=== PATIENT | female | born 1990 | race American Indian/Alaskan Native ===

== ENCOUNTER 2016-12-03 20:08 | Emergency (ER) | payer SELFPAY ==
[2016-12-03 20:29] VITALS: BP 128/80
[2016-12-03 21:19] LABS: Anion Gap 16 mmol/L; Blood Urea Nitrogen 6 mg/dL (7-17); Calcium 8.4 mg/dL (8.4-10.2); Carbon Dioxide 25 mmol/L (22-30); Chloride 102.5 mmol/L (98-107); Glucose 113 mg/dL (65-100); Potassium 3.7 mmol/L (3.6-5.0); Sodium 140 mmol/L (137-145)
[2016-12-03 21:22] LABS: Basophils % (Auto) 0.3 % (0.0-1.8); Eosinophils % (Auto) 1.9 % (0.0-4.3); Hematocrit 33.3 % (30.3-42.9); Hemoglobin 10.6 gm/dl (10.1-14.3); Mean Corpuscular HGB Conc 32 % (30-34); Mean Corpuscular Volume 82 fl (79-97); Platelet Count 200 K/mm3 (140-440); Red Blood Count 4.08 M/mm3 (3.65-5.03); Red Cell Distribution Width 14.5 % (13.2-15.2); White Blood Count 6.5 K/mm3 (4.5-11.0)
[2016-12-03 21:26] LABS: Mean Corpuscular Hemoglobin 26 pg (28-32)
--- NOTE | 2016-12-03 22:51 | XRay Report ---
FINAL REPORT EXAM: XR CHEST ROUTINE 2V HISTORY: shortness of breath TECHNIQUE: PA and lateral chest radiographs PRIORS: None. FINDINGS: No mediastinal shift. Cardiac silhouette is not enlarged. No pneumothorax, effusion, or focal pulmonary opacity. No acute skeletal finding. IMPRESSION: No focal pulmonary opacity.
--- NOTE | 2016-12-03 23:38 | Emergency Department Report ---
ED General Adult HPI - General Chief complaint: Upper Respiratory Infection Stated complaint: BACK/CHEST PAIN Time Seen by Provider: 12/03/16 23:15 Source: patient Mode of arrival: Ambulatory Limitations: No Limitations - History of Present Illness Initial comments: Patient comes into the ER today with complaints of left sided back pain for the past 2 days. Patient denies any obvious injury. Patient states that the pain is worse with movement, breathing, lifting. Patient also states that the pain seems to radiate around to her left side and describes it as a tight pulling sensation. Patient denies any cough, fever, hemoptysis, abdominal pain. Patient does note that she works at [employer] and does a lot of heavy lifting. -: days(s) (2) - Related Data Previous Rx's Medication Instructions Recorded Last Taken Type Cyclobenzaprine [Flexeril] 10 mg PO BID PRN #15 tablet 12/03/16 Unknown Rx Naproxen [Naprosyn TAB] 500 mg PO BID #20 tablet 12/03/16 Unknown Rx traMADol [Ultram 50 MG tab] 50 mg PO Q4HR PRN #20 tablet 12/03/16 Unknown Rx Allergies Allergy/AdvReac Type Severity Reaction Status Date / Time No Known Allergies Allergy Unverified 12/03/16 20:23 ED Review of Systems ROS: Stated complaint: BACK/CHEST PAIN Other details as noted in HPI Constitutional: denies: chills, fever Eyes: denies: eye pain, eye discharge, vision change ENT: denies: ear pain, throat pain Respiratory: denies: cough, shortness of breath, wheezing Cardiovascular: denies: chest pain, palpitations Endocrine: no symptoms reported Gastrointestinal: denies: abdominal pain, nausea, diarrhea Genitourinary: denies: urgency, dysuria, discharge Musculoskeletal: myalgia. denies: back pain, joint swelling, arthralgia Skin: denies: rash, lesions Neurological: denies: headache, weakness, paresthesias Psychiatric: denies: anxiety, depression Hematological/Lymphatic: denies: easy bleeding, easy bruising ED Past Medical Hx - Past Medical History Previous Medical History?: No - Surgical History Past Surgical History?: No - Social History Smoking Status: Never Smoker Substance Use Type: None - Medications Home Medications: Home Medications Medication Instructions Recorded Confirmed Last Taken Type Cyclobenzaprine [Flexeril] 10 mg PO BID PRN #15 tablet 12/03/16 Unknown Rx Naproxen [Naprosyn TAB] 500 mg PO BID #20 tablet 12/03/16 Unknown Rx traMADol [Ultram 50 MG tab] 50 mg PO Q4HR PRN #20 tablet 12/03/16 Unknown Rx ED Physical Exam - General Limitations: No Limitations General appearance: alert, in no apparent distress - Head Head exam: Present: atraumatic, normocephalic - Eye Eye exam: Present: normal appearance - ENT ENT exam: Present: normal exam, normal orophraynx, mucous membranes moist, TM's normal bilaterally, normal external ear exam - Neck Neck exam: Present: normal inspection, full ROM. Absent: tenderness, lymphadenopathy - Respiratory Respiratory exam: Present: normal lung sounds bilaterally. Absent: respiratory distress, decreased breath sounds - Cardiovascular Cardiovascular Exam: Present: regular rate, normal rhythm, normal heart sounds. Absent: systolic murmur, diastolic murmur, rubs, gallop - GI/Abdominal GI/Abdominal exam: Present: soft, normal bowel sounds. Absent: distended, tenderness, guarding, rebound - Extremities Exam Extremities exam: Present: normal inspection, full ROM, tenderness (left parascapular tenderness), normal capillary refill. Absent: pedal edema, joint swelling, calf tenderness - Back Exam Back exam: Present: normal inspection, full ROM, tenderness (left rhomboid and parascapular muscle tenderness), muscle spasm (left rhomboid muscles), paraspinal tenderness. Absent: CVA tenderness (R), CVA tenderness (L), vertebral tenderness - Neurological Exam Neurological exam: Present: alert, oriented X3, CN II-XII intact, normal gait, reflexes normal. Absent: motor sensory deficit - Psychiatric Psychiatric exam: Present: normal affect, normal mood - Skin Skin exam: Present: warm, dry, intact, normal color. Absent: rash ED Course Vital Signs 12/03/16 20:23 Temperature 98.4 F Pulse Rate 81 Respiratory 18 Rate Blood Pressure 128/80 O2 Sat by Pulse 100 Oximetry ED Medical Decision Making - Lab Data Result diagrams: 12/03/16 20:50 12/03/16 20:50 Lab Results 12/03/16 12/03/16 12/03/16 Range/Units 20:50 20:50 20:50 WBC 6.5 (4.5-11.0) K/mm3 RBC 4.08 (3.65-5.03) M/mm3 Hgb 10.6 (10.1-14.3) gm/dl Hct 33.3 (30.3-42.9) % MCV 82 (79-97) fl MCH 26 L (28-32) pg MCHC 32 (30-34) % RDW 14.5 (13.2-15.2) % Plt Count 200 (140-440) K/mm3 Lymph % (Auto) 19.8 (13.4-35.0) % [place] % (Auto) 6.7 (0.0-7.3) % Eos % (Auto) 1.9 (0.0-4.3) % Baso % (Auto) 0.3 (0.0-1.8) % Lymph # 1.3 (1.2-5.4) K/mm3 [place] # 0.4 (0.0-0.8) K/mm3 Eos # 0.1 (0.0-0.4) K/mm3 Baso # 0.0 (0.0-0.1) K/mm3 Seg Neutrophils % 71.3 H (40.0-70.0) % Seg Neutrophils # 4.7 (1.8-7.7) K/mm3 Sodium 140 (137-145) mmol/L Potassium 3.7 (3.6-5.0) mmol/L Chloride 102.5 (98-107) mmol/L Carbon Dioxide 25 (22-30) mmol/L Anion Gap 16 mmol/L BUN 6 L (7-17) mg/dL Creatinine 0.6 L (0.7-1.2) mg/dL Estimated GFR > 60 ml/min BUN/Creatinine Ratio 10.00 % Glucose 113 H (65-100) mg/dL Calcium 8.4 (8.4-10.2) mg/dL HCG, Qual Negative (Negative) - EKG Data -: EKG Interpreted by Ak EKG shows normal: sinus rhythm Rate: normal - EKG Data Interpretation: no acute changes, normal EKG - Radiology Data Radiology results: report reviewed Normal chest x-ray - Medical Decision Making Patient is nontoxic and hemodynamically stable. History and physical examines consistent with muscle strain of unknown origin. I do believe this may be related to her job. Patient states that she has continued to work over the past 2 days with this pain and that the pain is worse towards the end of her working. Start patient on medications to relax the muscles as well as help with inflammation and limit her activities over the next few days. Patient is in agreement. Plan a patient stable for discharge. Critical care attestation.: If time is entered above; I have spent that time in minutes in the direct care of this critically ill patient, excluding procedure time. ED Disposition Clinical Impression: Thoracic myofascial strain, Thoracic back pain Disposition: TO HOME OR SELFCARE Is pt being admited?: No Does the pt Need Aspirin: No Condition: Good Instructions: Muscle Strain (ED) Prescriptions: Cyclobenzaprine [Flexeril] 10 mg PO BID PRN #15 tablet PRN Reason: Muscle Spasm Naproxen [Naprosyn TAB] 500 mg PO BID #20 tablet traMADol [Ultram 50 MG tab] 50 mg PO Q4HR PRN #20 tablet PRN Reason: Pain Referrals: PRIMARY CARE, [Primary Care Provider] - 3-5 Days Forms: Work/School Release Form(ED) Time of Disposition: 23:38
== END 2016-12-03 23:49 | disposition home or self-care (01) ==
LOC: ED 20:08
DX: S29.012A Strain of muscle and tendon of back wall of thorax, initial encounter (principal); X58.XXXA Exposure to other specified factors, initial encounter; Y93.9 Activity, unspecified; Y92.9 Unspecified place or not applicable; Y99.9 Unspecified external cause status
CPT/HCPCS: 36415; 71020; 80048; 84703; 85025; 93005; 93010; 99284

== ENCOUNTER 2018-06-17 14:41 | Emergency (ER) | payer MEDICAID ==
[2018-06-17 15:00] VITALS: BP 119/74
--- NOTE | 2018-06-17 18:13 | Emergency Department Report ---
ED General Adult HPI - General Chief complaint: Pain General Stated complaint: (L) SIDE HEAD PAIN Time Seen by Provider: 06/17/18 18:08 Source: patient Mode of arrival: Ambulatory Limitations: No Limitations - History of Present Illness Initial comments: 28-year-old obese Afro-Portuguese female to emergency Department complaining of left sided chest pain, left-sided headache with blurry vision and nausea and photophobia. It started spontaneously this morning. No coryza is noted. She reports hemoptysis, no hematemesis or hematochezia. No palpitations, no diarrhea, no constipation, no dysuria, no trauma. She reports no change in speech. No fever. Radiation: non-radiation Quality: dull Consistency: constant Improves with: other (headache gets worse with light. No scotomas) Worsens with: none Associated Symptoms: denies other symptoms, chest pain (reports having had some left-sided chest discomfort off and on for the last day it goes from sharp to pressure. Reports living mild bloating to the abdomen as well. Does have constipation, but no abdominal pain. No palliative or provocative factors for the chest pain.), other (mild blurred vision to the left side off and on). denies: cough, diaphoresis, loss of appetite, malaise, nausea/vomiting, syncope, weakness Treatments Prior to Arrival: none - Related Data Previous Rx's Medication Instructions Recorded Last Taken Type Cyclobenzaprine [Flexeril] 10 mg PO BID PRN #15 tablet 12/03/16 Unknown Rx Naproxen [Naprosyn TAB] 500 mg PO BID #20 tablet 12/03/16 Unknown Rx traMADol [Ultram 50 MG tab] 50 mg PO Q4HR PRN #20 tablet 12/03/16 Unknown Rx Bisacodyl [Dulcolax] 10 mg PO DAILY PRN #7 tab 06/17/18 Unknown Rx Butalb/Acetaminophen/Caffeine 1 cap PO Q6HR PRN #20 cap 06/17/18 Unknown Rx [Fioricet 50-300-40 mg CAP] Lactulose [Cephulac] 30 gm PO Q8HR #360 ml 06/17/18 Unknown Rx Ondansetron (Nf) [Zofran TAB] 8 mg PO Q8HR PRN #20 tablet 06/17/18 Unknown Rx Allergies Allergy/AdvReac Type Severity Reaction Status Date / Time No Known Allergies Allergy Unverified 12/03/16 20:23 ED Review of Systems ROS: Stated complaint: (L) SIDE HEAD PAIN Other details as noted in HPI Constitutional: denies: chills, fever Eyes: denies: eye pain, eye discharge, vision change ENT: denies: ear pain, throat pain Respiratory: cough. denies: shortness of breath, wheezing Cardiovascular: denies: chest pain, palpitations, edema Endocrine: no symptoms reported Gastrointestinal: denies: abdominal pain, nausea, diarrhea Genitourinary: denies: urgency, dysuria, discharge Musculoskeletal: denies: back pain, joint swelling, arthralgia Skin: denies: rash, lesions, pruritus Neurological: headache. denies: weakness, paresthesias Psychiatric: denies: anxiety, depression Hematological/Lymphatic: denies: easy bleeding, easy bruising ED Past Medical Hx - Past Medical History Previous Medical History?: No - Surgical History Past Surgical History?: No - Social History Smoking Status: Never Smoker Substance Use Type: None - Medications Home Medications: Home Medications Medication Instructions Recorded Confirmed Last Taken Type Cyclobenzaprine [Flexeril] 10 mg PO BID PRN #15 tablet 12/03/16 Unknown Rx Naproxen [Naprosyn TAB] 500 mg PO BID #20 tablet 12/03/16 Unknown Rx traMADol [Ultram 50 MG tab] 50 mg PO Q4HR PRN #20 tablet 12/03/16 Unknown Rx Bisacodyl [Dulcolax] 10 mg PO DAILY PRN #7 tab 06/17/18 Unknown Rx Butalb/Acetaminophen/Caffeine 1 cap PO Q6HR PRN #20 cap 06/17/18 Unknown Rx [Fioricet 50-300-40 mg CAP] Lactulose [Cephulac] 30 gm PO Q8HR #360 ml 06/17/18 Unknown Rx Ondansetron (Nf) [Zofran TAB] 8 mg PO Q8HR PRN #20 tablet 06/17/18 Unknown Rx ED Physical Exam - General Limitations: No Limitations General appearance: alert, in no apparent distress - Head Head exam: Present: atraumatic, normocephalic - Eye Eye exam: Present: normal appearance, PERRL, EOMI. Absent: scleral icterus, conjunctival injection, periorbital swelling, periorbital tenderness Pupils: Present: normal accommodation, other (negative funduscopic examination). Absent: unequal - ENT ENT exam: Present: normal exam, mucous membranes moist, TM's normal bilaterally - Neck Neck exam: Present: normal inspection, full ROM. Absent: tenderness, meningismus, lymphadenopathy - Respiratory Respiratory exam: Present: normal lung sounds bilaterally. Absent: respiratory distress, wheezes, rales, rhonchi, chest wall tenderness, accessory muscle use - Cardiovascular Cardiovascular Exam: Present: regular rate, normal rhythm. Absent: systolic murmur, diastolic murmur, rubs, gallop - GI/Abdominal GI/Abdominal exam: Present: soft, normal bowel sounds. Absent: tenderness, guarding, hyperactive bowel sounds, organomegaly - Extremities Exam Extremities exam: Present: normal inspection - Back Exam Back exam: Present: normal inspection, full ROM, CVA tenderness (L). Absent: CVA tenderness (R), paraspinal tenderness, vertebral tenderness - Neurological Exam Neurological exam: Present: alert, oriented X3, CN II-XII intact, normal gait. Absent: motor sensory deficit - Psychiatric Psychiatric exam: Present: normal affect, normal mood. Absent: agitated, flat affect, manic - Skin Skin exam: Present: warm, dry, intact, normal color. Absent: rash ED Course Vital Signs 06/17/18 14:55 Temperature 97.6 F Pulse Rate 79 Respiratory 18 Rate Blood Pressure 119/74 O2 Sat by Pulse 98 Oximetry ED Medical Decision Making - Lab Data Result diagrams: 06/17/18 19:07 06/17/18 19:07 - Radiology Data Radiology results: report reviewed ient: LUPE HOLBROOK MR#: [id number] : 1990 Acct:[id number] Age/Sex: 28 / F ADM Date: 06/17/18 Loc: ED Attending Dr: Ordering Physician: LAYLA RIGGS Date of Service: 06/17/18 Procedure(s): CT head/brain wo con Accession Number(s): [id number] cc: LAYLA RIGGS FINAL REPORT EXAM: CT HEAD/BRAIN WO CON HISTORY: headache with blurred vision left eye TECHNIQUE: CT was performed from the foramen magnum through the vertex in the axial plane without the use of intravenous contrast. PRIORS: None. FINDINGS: The zapata/white matter attenuation pattern is normal. There is no mass lesion or mass effect. There are no abnormal extra-axial fluid collections. There is no evidence of acute intracranial hemorrhage or infarct. The ventricles are of normal size and configuration. The skull and orbits are unremarkable. The visualized paranasal sinuses are clear. IMPRESSION: Normal CT of the head. Transcribed By: JAMEL Dictated By: CORAZON CARVER MD Electronically Authenticated By: CORAZON CARVER MD Signed Date/Time: 06/17/182207 DD/ 08 TD/TT: 06/17/182208 - Medical Decision Making Chest x-ray did reveal some moderate constipation. Discussed constipation and chest pain with Ms. Holbrook will give her some to his upper constipation of chest pain still present after which she'll follow with primary care and and likely cardiovascular to determine whether she is in need of exercise stress test Critical care attestation.: If time is entered above; I have spent that time in minutes in the direct care of this critically ill patient, excluding procedure time. ED Disposition Clinical Impression: Chest pain, Cephalgia, Acute constipation Disposition: TO HOME OR SELFCARE Is pt being admited?: No Does the pt Need Aspirin: No Condition: Stable Instructions: Chest Pain (ED), Migraine Headache (ED), Costochondritis (ED), Acute Headache (ED), Noncardiac Chest Pain (ED) Prescriptions: Bisacodyl [Dulcolax] 10 mg PO DAILY PRN #7 tab PRN Reason: Constipation Butalb/Acetaminophen/Caffeine [Fioricet 50-300-40 mg CAP] 1 cap PO Q6HR PRN #20 cap PRN Reason: Headache Lactulose [Cephulac] 30 gm PO Q8HR #360 ml Ondansetron (Nf) [Zofran TAB] 8 mg PO Q8HR PRN #20 tablet PRN Reason: Nausea Referrals: [facility] [Provider Group] - 3-5 Days PRIMARY CARE, [Primary Care Provider] - 3-5 Days Forms: Work/School Release Form(ED)
[2018-06-17] MEDS ORDERED: TORADOL IV STA (18:20)
[2018-06-17] MEDS ORDERED: BENADRYL IV STA (18:20)
[2018-06-17] MEDS ORDERED: REGLAN IV STA (18:20)
[2018-06-17 19:49] LABS: Alanine Aminotransferase 8 units/L (7-56); Albumin 4.3 g/dL (3.9-5); BUN/Creatinine Ratio 14; Blood Urea Nitrogen 11 mg/dL (7-17); Calcium 9.2 mg/dL (8.4-10.2); Hemolysis Index 1
[2018-06-17 19:59] LABS: Basophils % (Auto) 0.7 % (0.0-1.8); Eosinophils # (Auto) 0.1 K/mm3 (0.0-0.4); Eosinophils % (Auto) 1.1 % (0.0-4.3); Lymphocytes # (Auto) 2.1 K/mm3 (1.2-5.4); Lymphocytes % (Auto) 31.5 % (13.4-35.0); Mean Corpuscular HGB Conc 32 % (30-34); Mean Corpuscular Volume 81 fl (79-97); Monocytes # (Auto) 0.7 K/mm3 (0.0-0.8); Platelet Count 222 K/mm3 (140-440); Red Blood Count 4.17 M/mm3 (3.65-5.03); Red Cell Distribution Width 14.5 % (13.2-15.2)
[2018-06-17 20:02] LABS: Erythrocyte Sedimentation Rate 19 mm/Hr (0-20)
[2018-06-17 20:43] LABS: HCG Qualitative,Urine Negative (Negative)
--- NOTE | 2018-06-17 21:19 | XRay Report ---
FINAL REPORT EXAM: XR CHEST ROUTINE 2V HISTORY: chest pain TECHNIQUE: 2 views of the chest. PRIORS: None. FINDINGS: The cardiomediastinal silhouette appears normal. The lungs are clear. The bones and soft tissues are unremarkable. The visualized colon is moderately gas distended. IMPRESSION: No evidence of acute cardiopulmonary disease Moderately gas distended colon
--- NOTE | 2018-06-17 22:08 | Cat Scan Report ---
FINAL REPORT EXAM: CT HEAD/BRAIN WO CON HISTORY: headache with blurred vision left eye TECHNIQUE: CT was performed from the foramen magnum through the vertex in the axial plane without th e use of intravenous contrast. PRIORS: None. FINDINGS: The zapata/white matter attenuation pattern is normal. There is no mass lesion or mass effect. There ar e no abnormal extra-axial fluid collections. There is no evidence of acute intracranial hemorrhage or infarct. The ventricles are of normal size and configuration. The skull and orbits are unremarkable . The visualized paranasal sinuses are clear. IMPRESSION: Normal CT of the head.
== END 2018-06-17 22:45 | disposition home or self-care (01) ==
LOC: ED 14:41
DX: K59.00 Constipation, unspecified (principal); R07.89 Other chest pain; R51 Headache; H53.8 Other visual disturbances
CPT/HCPCS: 36415; 70450; 71046; 80053; 81025; 84484; 85025; 85652; 96374; 96375; 99284; J1200; J1885; J2765